=== PATIENT | male | born 1955 | race Caucasian/White ===

== ENCOUNTER 2023-09-13 10:58 | Observation (INO) ==
[2023-09-13 11:39] LABS: ABS Basophils 0.1 10^3/uL (0.0-0.1); ABS Eosinophils 0.3 10^3/uL (0.0-0.5); ABS Lymphocytes 1.3 10^3/uL (1.0-4.8); ABS Monocytes 0.8 10^3/uL (0.0-1.1); ABS Neutrophils 6.7 10^3/uL (1.5-7.6); Hematocrit 39.1 % (38-53); Hemoglobin 13.2 g/dL (13.2-16.3); Lymphocyte % 13.8 %; Mean Corpuscular Hemoglobin 29.9 pg (27-33); Mean Corpuscular Hgb Conc 33.7 g/dL (31-36); Mean Corpuscular Volume 88.9 fL (80-97); Mean Platelet Volume 7.9 fL (7.5-11.2); Platelet Count 331 10^3/uL (150-450); Red Cell Distribution Width 13.6 % (12-17); White Blood Count 9.1 10^3/uL (3.6-10.2)
[2023-09-13 11:48] LABS: INR 0.98 (0.83-1.13)
[2023-09-13 12:19] LABS: Albumin 4.1 g/dL (3.2-5.2); Albumin/Globulin Ratio 1.3 (1-3); Calcium 9.7 mg/dL (8.6-10.3); Creatinine, Serum 0.96 mg/dL (0.67-1.17); Globulin 3.1 g/dL (2-4); Magnesium 1.7 mg/dL (1.9-2.7); Potassium 4.2 mmol/L (3.5-5.0); Total Bilirubin 0.5 mg/dL (0.2-1.0); Total Protein 7.2 g/dL (6.4-8.9)
[2023-09-13 13:10] LABS: High Sensitivity Troponin 1 Hr 6 pg/mL (<20)
[2023-09-13] MEDS: Magnesium Sulfate 2 gm BAG 2 GM/50 ML BAG IVPB ONE (15:48)
[2023-09-13] MEDS: Nitro 2% OINT (Nitroglycerin) 1 INCH/PAK TOPICAL ONE (15:51)
[2023-09-13] MEDS ORDERED: Dextrose 50% Syringe 50 ml 25 GM/50 ML SYRINGE IV PUSH PRN (16:22)
[2023-09-13] MEDS: Enoxaparin 40 MG/0.4 ML SYR SUBCUT SCH (18:07)
[2023-09-13 22:05] LABS: Urine Appearance Clear; Urine Bilirubin Negative (Negative); Urine Blood Trace (Negative); Urine Color Light-Yellow; Urine Glucose Negative (Negative); Urine Ketones Negative (Negative); Urine Nitrite Negative (Negative); Urine Protein Negative (Negative); Urine Specific Gravity 1.011 (1.002-1.030); Urine Urobilinogen Negative (Negative); Urine pH 5.5 (5.0-8.0)
[2023-09-14 05:37] LABS: ABS Basophils 0.1 10^3/uL (0.0-0.1); ABS Eosinophils 0.1 10^3/uL (0.0-0.5); ABS Lymphocytes 1.6 10^3/uL (1.0-4.8); ABS Monocytes 0.9 10^3/uL (0.0-1.1); ABS Neutrophils 7.1 10^3/uL (1.5-7.6); Eosinophil % 1.2 %; Hematocrit 37.5 % (38-53); Hemoglobin 12.7 g/dL (13.2-16.3); Lymphocyte % 16.5 %; Mean Corpuscular Hgb Conc 33.9 g/dL (31-36); Mean Corpuscular Volume 88.3 fL (80-97); Mean Platelet Volume 8.1 fL (7.5-11.2); Platelet Count 300 10^3/uL (150-450); Red Blood Count 4.24 10^6/uL (4.06-5.63); Red Cell Distribution Width 13.7 % (12-17); White Blood Count 9.9 10^3/uL (3.6-10.2)
[2023-09-14 06:03] LABS: Calcium 9.6 mg/dL (8.6-10.3); Creatinine, Serum 0.76 mg/dL (0.67-1.17); Magnesium 1.8 mg/dL (1.9-2.7); eGFR CKD-EPI 96.7 (>60)
[2023-09-14] MEDS: Magnesium Sulfate IV 1GM/100ML 1 GM/100 ML BAG IV ONE ×2 (09:22→14:57)
[2023-09-14] MEDS: Aspirin EC 81 mg TAB.EC (enteric coated) PO SCH (09:25)
[2023-09-14] MEDS: Calcium Carb (TUMS) 500 mg CHEW TAB PO SCH (09:26)
[2023-09-14 09:52] LABS: TSH Ultra Thyroid Stim Horm 0.53 mcIU/mL (0.34-5.60)
[2023-09-14] MEDS: Sulfur Hexaflouride MICROSPHR 25 MG VIAL IV ONE (10:36)
[2023-09-14] MEDS: Nitro 2% OINT (Nitroglycerin) 1 INCH/PAK TOPICAL PRN (11:31)
[2023-09-14] MEDS ORDERED: Lidocaine 2% (CARDIAC or IV) 20 MG/ML 5 ML SYRINGE (100 MG) ONE (13:21)
[2023-09-14] MEDS ORDERED: Lidocaine 1% w EPI 1:100,000 MDV 20 ML VIAL ONE (13:22)
[2023-09-14] MEDS: NS 0.9% 1000 ml BAG 1,000 ML IV SCH (21:07)
[2023-09-15 05:06] LABS: ABS Basophils 0.1 10^3/uL (0.0-0.1); ABS Eosinophils 0.3 10^3/uL (0.0-0.5); ABS Lymphocytes 1.8 10^3/uL (1.0-4.8); ABS Neutrophils 5.3 10^3/uL (1.5-7.6); Eosinophil % 3.6 %; Hematocrit 36.8 % (38-53); Hemoglobin 12.4 g/dL (13.2-16.3); Lymphocyte % 21.7 %; Mean Corpuscular Hgb Conc 33.8 g/dL (31-36); Mean Corpuscular Volume 88.8 fL (80-97); Mean Platelet Volume 7.9 fL (7.5-11.2); Platelet Count 293 10^3/uL (150-450); Red Blood Count 4.15 10^6/uL (4.06-5.63); Red Cell Distribution Width 13.6 % (12-17); White Blood Count 8.5 10^3/uL (3.6-10.2)
[2023-09-15 05:29] LABS: Calcium 9.4 mg/dL (8.6-10.3); Creatinine, Serum 0.86 mg/dL (0.67-1.17); Magnesium 1.9 mg/dL (1.9-2.7); Potassium 3.6 mmol/L (3.5-5.0); eGFR CKD-EPI 93.1 (>60)
[2023-09-15] MEDS: Potassium Chlor 20 meq TAB.ER PO ONE (08:46)
[2023-09-15] MEDS: Magnesium Sulfate 2 gm BAG 2 GM/50 ML BAG IVPB ONE (08:47)
[2023-09-15] MEDS: Isosorbide Mononit ER 30mg TAB PO SCH (10:50)
[2023-09-15 14:00] VITALS: BP 141/89
== END 2023-09-15 15:03 | disposition home or self-care (01) ==
LOC: ED 10:58 → EDHOLD 10:58 → MEDTELE 16:47
PROVIDERS: ADMIT Internal Medicine; ATTEND Internal Medicine